=== PATIENT | female | born 1985 | race Caucasian/White ===

== ENCOUNTER → 2016-06-26 | Outpatient (CLI) | payer OTHER ==
--- NOTE | 2016-06-28 16:12 | US ---
EXAM DATE: 06/26/16 PATIENT'S AGE: 31 Patient: KENDRICK BECERRA Facility: [place], [place] Site . Site : 1985 Study: US Abdomen [id number]/28/2017 9:55:37 AM Ordering Physician: Dillon Hooper Final Report: Indication: Chronic right upper quadrant pain. Findings: Visualized pancreas is normal. Inferior vena cava is patent. Aorta is non aneurysmal. Liver echotexture is normal. Normal liver size. No mass, cyst or ductal dilatation. Right kidney is 11 cm in length with sonographically unremarkable appearance. No ascites. Gallbladder is sonographically normal. No wall thickening. No sonographic Serra`s sign. No filling defect. Common bile duct 2 mm at the susan hepatis with uniform appearance were visualized. Impression: Normal right upper quadrant ultrasound. Dictated by Santiago London MD @ Jun 26 2016 10:25AM (Electronic Signature) Report Signed by Proxy. [facility]I
== END ==
LOC: MW.US 09:14
PROVIDERS: ATTEND Physician Assistant
DX: R10.11 Right upper quadrant pain (principal)
CPT/HCPCS: 76705; 76705-26

== ENCOUNTER 2022-09-10 18:47 | Emergency (ER) | payer SELFPAY ==
[2022-09-10 19:47] VITALS: BP 110/71; PULSE 53
[2022-09-10] MEDS ORDERED: Acetaminophen/HYDROcodone 325-5 MG Tab PO ONE (20:42)
== END 2022-09-10 23:50 | disposition home or self-care (01) ==
LOC: MW.ED 18:47
DX: S52.571A Other intraarticular fracture of lower end of right radius, initial encounter for closed fracture (principal); W19.XXXA Unspecified fall, initial encounter; Y93.B9 Activity, other involving muscle strengthening exercises; Y92.838 Other recreation area as the place of occurrence of the external cause
CPT/HCPCS: 25605; 73100-26-RT; 73100-RT; 73110-26-RT; 73110-RT; 99283

== ENCOUNTER 2023-08-02 06:55 | Inpatient (IN) | payer SELFPAY ==
[2023-08-02] MEDS: Lactated Ringers 1,000 ML IV SCH (07:00)
[2023-08-02] MEDS: Ropivacaine HCl/PF 400 MG in Premix Bag 1 BAG EPIDUR SCH (07:10)
[2023-08-02] MEDS ORDERED: fentaNYL 100 MCG/2 ML SDV ONE (07:17)
[2023-08-02] MEDS ORDERED: Bupivacaine 0.25% 10 ML SDV ONE (07:17)
[2023-08-02] MEDS ORDERED: Phenylephrine HCl In 0.9% NaCl 1 MG/10 ML Syringe ONE (07:18)
[2023-08-02] MEDS ORDERED: Ropivacaine HCl/PF 200 ML ONE (07:18)
[2023-08-02] MEDS ORDERED: dexmedeTOMIDine HCl 200 MCG/2 ML SDV ONE (07:18)
[2023-08-02] MEDS ORDERED: ePHEDrine 50 MG/ML SDV IVPUSH PRN ×2 (07:32)
[2023-08-02] MEDS: Phenylephrine HCl In 0.9% NaCl 1 MG/10 ML Syringe IVPUSH PRN (07:45)
[2023-08-02] MEDS ORDERED: Oxytocin/0.9 % Sodium Chloride 30 UNIT/500 ML BAG ONE (08:59)
[2023-08-02] MEDS: Oxytocin/0.9 % Sodium Chloride 30 UNIT/500 ML BAG IV SCH (09:00)
[2023-08-02] MEDS ORDERED: Sodium Chloride 0.9% 20 ML SDV IV PRN (09:05)
[2023-08-02] MEDS ORDERED: Misoprostol 200 MCG Tab PO PRN (09:05)
[2023-08-02] MEDS ORDERED: Tranexamic Acid IN NACL,ISO-OS 1,000 MG in Premix Bag 1 BAG IV PRN (09:05)
[2023-08-02] MEDS ORDERED: Carboprost Tromethamine 250 MCG/1 mL Vial IM PRN (09:05)
[2023-08-02] MEDS ORDERED: Sodium Chloride 0.9% 10 ML Syringe FLUSH PRN (09:05)
[2023-08-02] MEDS ORDERED: Butorphanol 2 MG/ML SDV IVPUSH PRN (09:05)
[2023-08-02] MEDS ORDERED: Lidocaine 1% 50 ML MDV INJECT PRN (09:05)
[2023-08-02] MEDS ORDERED: Methylergonovine 0.2 MG/1 ML Amp IM PRN (09:05)
[2023-08-02] MEDS ORDERED: Sodium Chloride 0.9% 2.5 ML Syringe FLUSH PRN (09:05)
[2023-08-02] MEDS ORDERED: Water For Irrigation,Sterile 1,000 ML Container IRR PRN (09:05)
[2023-08-02] MEDS ORDERED: Measles, Mumps & Rubella Vaccine 0.5 ML SDV SUBCUT ONE (09:57)
[2023-08-02] MEDS ORDERED: Benzocaine/Menthol 20%-0.5% Spray 78 GM Cannister TOP PRN (09:57)
[2023-08-02] MEDS ORDERED: Ibuprofen 800 MG Tab PO PRN (09:57)
[2023-08-02] MEDS ORDERED: Lanolin 100% Cream 7 GM Tube TOP PRN (09:57)
[2023-08-02] MEDS ORDERED: Witch Hazel Medicated Pads 40/Jar TOP PRN (09:57)
[2023-08-02] MEDS ORDERED: Docusate Sodium 100 MG Cap PO PRN (09:57)
[2023-08-02 10:13] LABS: PH,UMBILICAL ARTERIAL 7.148 (7.18-7.38); PH,UMBILICAL VENOUS 7.298 (7.25-7.45)
[2023-08-02 11:53] LABS: HEMOGLOBIN 13.7 g/dL (12.0-16.0); IMMATURE GRAN ABSOLUTE AUTO 0.08 K/uL (0.00-0.05); IMMATURE GRAN PERCENT AUTO 0.6 % (0.0-0.4); MEAN CORPUSCULAR HEMOGLOBIN 28.4 pg (28.0-32.0); MEAN CORPUSCULAR HGB CONC 34.3 g/dL (32.0-36.0); MEAN PLATELET VOLUME 11.1 fL (9.4-12.3); PLATELET COUNT,PLT 210 K/uL (150-400); RED BLOOD CELL COUNT 4.82 M/uL (4.10-5.30); WHITE BLOOD CELL COUNT,WBC 12.39 K/uL (3.9-11.3)
[2023-08-03] MEDS: Acetaminophen 500 MG Tab PO PRN (00:36)
[2023-08-03 06:16] LABS: HEMATOCRIT 31.4 % (37.0-47.0); HEMOGLOBIN 10.5 g/dL (12.0-16.0)
[2023-08-03 08:11] VITALS: BP 124/65; PULSE 82
== END 2023-08-03 11:00 | disposition home or self-care (01) | DRG 807 ==
LOC: MW.OBCHECK 06:55 → MW.OB 06:56 → MW.OBCHECK 08:45 → MW.OB 08:45 → OBSVTOIN 08:54 → MW.OB 20:43
PROVIDERS: ADMIT Obstetrics & Gynecology; ATTEND Obstetrics & Gynecology
PROC: 10E0XZZ Delivery of Products of Conception, External Approach (ICD-10-PCS; principal; 2023-08-02)
PROC: 3E033VJ Introduction of Other Hormone into Peripheral Vein, Percutaneous Approach (ICD-10-PCS; 2023-08-02)
PROC: 3E0R3BZ Introduction of Anesthetic Agent into Spinal Canal, Percutaneous Approach (ICD-10-PCS; 2023-08-02)
PROC: 00HU33Z Insertion of Infusion Device into Spinal Canal, Percutaneous Approach (ICD-10-PCS; 2023-08-02)
DX: O48.0 Post-term pregnancy (principal); Z37.0 Single live birth; O34.219 Maternal care for unspecified type scar from previous cesarean delivery; O76 Abnormality in fetal heart rate and rhythm complicating labor and delivery; O77.0 Labor and delivery complicated by meconium in amniotic fluid; Z3A.40 40 weeks gestation of pregnancy
CPT/HCPCS: 01967; 36415; 59025; 59409; 82803; 85014; 85018; 85027; 86592; 86706; 86762; 86850; 86900; 86901; 87340; 87389; A9270-GY; J2371; J2590; J2795; J3010; J3490; J7120